=== PATIENT | female | born 1965 | race African-American/Black ===

== ENCOUNTER 2023-03-08 16:46 | Emergency (ER) | payer OTHER, SELFPAY | END 2023-03-08 19:05 | disposition home or self-care (01) | LOC: ERS 16:46 | DX: I10 Essential (primary) hypertension (principal); M17.11 Unilateral primary osteoarthritis, right knee; F17.210 Nicotine dependence, cigarettes, uncomplicated; Z79.899 Other long term (current) drug therapy ==